=== PATIENT | male | born 1970 | race Caucasian/White ===

== ENCOUNTER 2017-03-22 19:08 | Emergency (ER) | payer BC ==
[~2017-03-22] VITALS: Ht 180.3 cm; Wt 147.4 kg
--- OUTSIDE RECORDS SUMMARY | ~2017-03-22 | XMS | Clinical Summary ---
Demographics + + + | Address | [address] | | | [place] [address] | + + + | Home Phone | | + + + | Preferred Language | Unknown | + + + | Marital Status | | + + + | Mosque Affiliation | Unknown | + + + | Race | White | + + + | Ethnic Group | Not or | + + + Author + + + | Author | [facility] | + + + | Organization | [facility] | + + + | Address | Unknown | + + + | Phone | Unavailable | + + + Support +------+ + + + +-------+ | Name | Relationship | Address | Phone | +------+ + + + +-------+ ECON | [address] | | [place] | [address] | +------+ + + + +-------+ Care Team Providers + +------+ + | Care Communications Technician Name | Role | Phone | + +------+ + PP | Unavailable | + +------+ + Source Comments JUAN is fully live on both [facility] Amb[facility] and [facility] InPatient.[facility] Allergies Not on File Current Medications Not [...]
--- OUTSIDE RECORDS SUMMARY | ~2017-03-22 | XMS | Clinical Summary ---
Demographics + + + | Address | [address] | | | [place] [address] | + + + | Home Phone | | + + + | Preferred Language | Unknown | + + + | Marital Status | | + + + | Mandaen Affiliation | Unknown | + + + [address] | | [place] | [address] | +------+ + + + +-------+ Care Team Providers + +------+ + | Care Outbound Supervisor Name | Role | Phone | + +------+ + PP | Unavailable | + +------+ + Source Comments JUAN is fully live on both [facility] Ambulatory and [facility] InPatient.[facility] Allergies Not on File Current Medications [...]
[2017-03-22] MEDS ORDERED: NORVASC10 MG PO (19:19)
== END 2017-03-22 22:58 | disposition home or self-care (01) ==
LOC: ED 19:08
DX: K52.9 Noninfective gastroenteritis and colitis, unspecified (principal); I10 Essential (primary) hypertension; Z79.899 Other long term (current) drug therapy
CPT/HCPCS: 80053; 81001; 83690; 85025; 96361; 96374; 96375; 99284; J2270; J2405; J2550; J7030

== ENCOUNTER 2017-09-30 19:24 | Inpatient (IN) | payer BC ==
[~2017-09-30] VITALS: Ht 180.3 cm; Wt 134.3 kg
--- OUTSIDE RECORDS SUMMARY | ~2017-09-30 | XMS | Clinical Summary ---
Demographics + + + | Address | [address] | | | [place] [address] | + + + | Home Phone | | + + + | Preferred Language | Unknown | + + + | Marital Status | | + + + | Christianity Affiliation | Unknown | + + + | Race | White | + + + | Ethnic Group | Not or | + + + Author + + + | Author | [facility] | + + + | Organization | [facility] | + + + | Address | Unknown | + + + | Phone | Unavailable | + + + Support + + + + + | Name | Relationship | Address | Phone | + + + + + | THANH CAMPBELL | ECON | [address] | | | | | [place] | | | | | [address] | | + + + + + Care Team Providers + +------+ + | Care Learning Engineer Name | Role | Phone | + +------+ + PP | Unavailable | + +------+ + Source Comments JUAN is fully live on both [facility] Ambulatory and [facility] InPatient.[facility] Allergies Not on File Current Medications Not on file Active Problems Not on file Social History + +-------+ +--------+------+ | Tobacco Use | Types | Packs/Day | Years | Date | | | | | Used | | + +-------+ +--------+------+ | Never Assessed | | | | | + +-------+ +--------+------+ + + + | Sex Assigned at | Date Recorded | | | | + + + | Not on file | | + + + Plan of Treatment Not on file Results Not on filefrom Last 3 Months"
--- OUTSIDE RECORDS SUMMARY | ~2017-09-30 | XMS | Clinical Summary ---
Demographics + + + | Address | [address] | | | [place] [address] | + + + | Home Phone | | + + + | Preferred Language | Unknown | + + + | Marital Status | | + + + | Taoist Affiliation | Unknown | + + + | Race | Unknown | + + + | Ethnic Group | Unknown | + + + Author + + + | Author | [facility] | + + + | Organization | [facility] | + + + | Address | Unknown | + + + | Phone | Unavailable | + + + Support + + + + + | Name | Relationship | Address | Phone | + + + + + | Africa Arvizu | ECON | [address] | | | | | [place] | | | | | [address] | | + + + + + Care Team Providers + +------+ + | Care Facility Operations Manager Name | Role | Phone | + +------+ + | Medicine, [place] | PP | Unavailable | | Family | | | + +------+ + Allergies Not on File Current Medications Not [...]
--- OUTSIDE RECORDS SUMMARY | ~2017-09-30 | XMS | Clinical Summary ---
Demographics + + + | Address | [address] | | | [place] [address] | + + + | Home Phone | | + + + | Preferred Language | Unknown | + + + | Marital Status | | + + + | Presybeterian Affiliation | Unknown | + + + | Race | Unknown | + + + | Ethnic Group | Unknown | + + + Author + + + | Author | [facility] | + + + | Organization | [facility] | + + + | Address | Unknown | + + + | Phone | Unavailable | + + + Support + + + + + | Name | Relationship | Address | Phone | + + + + + | Africa Arvizu | ECON | [address] | | | | | [place] | | | | | [address] | | + + + + + Care Team Providers + +------+ + | Care Older Adult Social Work Specialist Name | Role | Phone | + +------+ + | Medicine, [place] | PP | Unavailable | | Family [...]
--- OUTSIDE RECORDS SUMMARY | ~2017-09-30 | XMS | Clinical Summary ---
Demographics + + + | Address | [address] | | | [place] [address] | + + + | Home Phone | | + + + | Preferred Language | Unknown | + + + | Marital Status | | + + + | Advent Affiliation | Unknown | + + + [...] [place] | | | | | [address] | | + + + + + Care Team Providers + +------+ + | Care Umbrella Cutter Name | Role | Phone | + +------+ + PP | Unavailable | + +------+ + Source Comments JUAN is fully live on both [facility] Ambulatory and [facility] InPatient.[facility] Allergies Not on File Current Medications Not [...]
--- OUTSIDE RECORDS SUMMARY | ~2017-09-30 | XMS | Clinical Summary ---
Demographics + + + | Address | [address] | | | [place] [address] | + + + | Home Phone | | + + + | Preferred Language | Unknown | + + + | Marital Status | | + + + | Episcopalian Affiliation | Unknown | + + + [...] [place] | | | | | [address] | | + + + + + Care Team Providers + +------+ + | Care Slot Machine Department Floorperson Name | Role | Phone | + +------+ + PP | Unavailable | + +------+ + Source Comments JUAN is fully live on both [facility] Amb[facility] and [facility] InPatient.[facility] Allergies Not on File Current Medications [...]
--- OUTSIDE RECORDS SUMMARY | ~2017-09-30 | XMS | Clinical Summary ---
Demographics + + + | Address | [address] | | | [place] [address] | + + + | Home Phone | | + + + | Preferred Language | Unknown | + + + | Marital Status | | + + + | Sabianism Affiliation | Unknown | + + + | Race | Unknown | + + + | Ethnic Group | Unknown | + + + Author + + + | Author | [facility] | + + + | Organization | [facility] | + + + | Address | Unknown | + + + | Phone | Unavailable | + + + Support + + + + + | Name | Relationship | Address | Phone | + + + + + | Africa Arvizu | ECON | [address] | | | | | [place] | | | | | [address] | | + + + + + Care Team Providers + +------+ + | Care Milk Drier Name | Role | Phone | + +------+ + | Medicine, [place] | PP | Unavailable | | Family [...]
[~2017-09-30 19:24] MED LIST: NORVASC10 MG PO
[2017-09-30] MEDS ORDERED: METFORMIN HCL500 M1 PO (19:40)
[2017-09-30] MEDS ORDERED: CIPRO500 MG PO (19:42)
[2017-09-30] MEDS ORDERED: FLAGYL500 MG PO (19:43)
--- NOTE | 2017-10-01 00:06 | NUR ---
PT COMPLAINED OF NAUSEA, MED WITH PRN ZOFRAN. IN ROOM. CALL LIGHT WITHIN REACH, IV INFUSING PER ORDER.
--- NOTE | 2017-10-01 00:40 | NUR ---
MADE AN ICE PACK GIVIEN TO PATIENT.
--- NOTE | 2017-10-01 00:57 | NUR ---
PATIENT GIVEN BY CLINICAL TRIALS SYSTEMS ADMINISTRATOR FOR COMPLAINTS OF NAUSEA. PATIENT ASSESED. PATIENTS 0000 MEDICATIONS GIVEN PER ORDER. PATIENT RATES PAIN AT A 2/10. PATIENT DENIES THE NEED FOR PAIN MEDICATION AT THIS TIME. PATIENT PROVIDED WITH ICE PACK PER REQUEST FOR PAIN IN HIS LLQ. NO FURTHER NEEDS NOTED. CALL LIGHT IN REACH. ASLEEP ON THE COUCH.
--- NOTE | 2017-10-01 02:18 | NUR ---
PATIENTS VITALS TAKEN AND RECORDED WITH FILLER ROOM ATTENDANT. NO NEEDS NOTED. CALL LIGHT IN REACH.
--- NOTE | 2017-10-01 03:59 | NUR ---
PATIENT IS RESTING IN BED WITH EYES CLOSED, RR 18. CALL LIGHT IN REACH.
--- NOTE | 2017-10-01 05:37 | NUR ---
PATIENTS VITALS TAKEN AND RECORDED. PATIENTS 0500 ABX STARTED PER ORDER. PATIENT DENIES ANY PAIN OR NAUSEA AT THIS TIME. PATIENT DENIES ANY NEEDS AT THIS TIME. CALLL LIGHT IN REACH.
--- NOTE | 2017-10-01 05:51 | NUR ---
PATIENT RESTED WELL SINCE ARRIVAL TO THE FLOOR. PATIENT IS ON A CLEAR LIQUID DIET. 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 PATIENT RECEIVED PRN NAUSEA MEDICATION X1. PATIENT COMPLAINED OF PAIN BUT DENIED THE NEED FOR PAIN MEDICATION. PATIENT HAS IV FLUIDS INFUSING. PATIENT IS AAOX3. URINE OUTPUT IS QS.
--- NOTE | 2017-10-01 09:52 | NUR ---
PATIENT IN BED, AT BEDSIDE. PATIENT REFUSED ALL ADLS. FRESH WATER GIVEN. CALL LIGHT IN REACH. NO FURTHER NEEDS AT THIS TIME.
--- NOTE | 2017-10-01 12:09 | NUR ---
PT RESTING IN BED WITH HIS AND FRIEND VISITING. HE HAS DEALT WITH THIS BEFORE, HE DID SAY THAT HE FEELS MUCH BETTER. EXTENDED A BLESSISNG-WILL RETURN TO FOLLOW UP
--- NOTE | 2017-10-01 12:33 | NUR ---
PATIENT ALERT LYING IN BED. AWAKE. DISCOMFORT IN ABDOMEN COMES AND GOES. 07/27 AT PEAK OF "[employer]ARE [employer]". COMFORTABLE AT THIS TIME. CLEAR LIQUID TRAY ON BEDSIDE TABLE. ACTIVE BOWEL TONES. DR ARANA HAS YET TO SEE PATIENT. IVF INFUSING. NO COMPLAINTS AT THIS TIME. AWAITING PLAN/ORDERS FROM [facility].
--- NOTE | 2017-10-01 13:26 | NUR ---
Medications reconciled using pharmacy records and patient interview. Patient has recurring flare-ups of diverticulitis, hence he has active RXs for ciprofloxacin & metronidazole.
--- NOTE | 2017-10-01 14:45 | NUR ---
PATIENT IN BED. PATIENT TALKING TO FRIENDS AND FAMILY ON PHONE. CALL LIGHT IN REACH. NO FURTHER NEEDS AT THIS TIME.
--- NOTE | 2017-10-01 16:28 | NUR ---
PT UP TO BATHROOM INDEPENDENTLY. SALINE LOCKED TO AMBULATE. IVF CHANGED TO LR AND INFUSING AT 125ML/HR. CEFEPIME INFUSING CONCURRENTLY. SCDs PLACED AT END OF BED. NURSE JUDGEMENT: DID NOT APPLY TO PATIENT HE IS UP IN ROOM OFTEN. FALL HAZARD. EDUCATED PATIENT THEY WILL HAVE TO BE APPLIED AT BEDTIME. ICE OFFERED FOR ABDOMEN. REFUSED FOR NOW.
--- NOTE | 2017-10-01 18:23 | NUR ---
PATIENT IN BED WATCHING TV. FRESHWATER GIVEN. CALL LIGHT IN REACH. NO FURTHER NEEDS AT THIS TIME.
--- NOTE | 2017-10-01 18:49 | NUR ---
PATIENT HAD ON AND OFF ABDOMINAL PAIN TODAY. NO PRN MEDS GIVEN. SBA/IND IN ROOM. VOIDING WELL. LR @ 125. CEFEPIME AND FLAGYL. SCDs AT NIGHT. HE GETS UP FREQUENTLY THROUGHOUT DAY. ICE TO ABDOMEN PRN. BOWEL REST AND ABX FOR TREATMENT. ACCU CHECKS ACHS.
--- NOTE | 2017-10-01 19:05 | NUR ---
RECEIVED REPORT FROM AR CHILDRESS RN. PATIENT IS RESTING IN BED WATCHING TV. PATIENT DENIES ANY PAIN OR NAUSEA. NO NEEDS NOTED CALL LIGHT IN REACH.
--- NOTE | 2017-10-01 20:20 | NUR ---
VITALS AND I AND O'S DONE AND CHARTED. BLOOD SUGAR DONE WELL. INFORMED HIS RN DARREN. BEDSIDE TABLE AND CALL LIGHT WITHIN REACH.
--- NOTE | 2017-10-01 20:35 | NUR ---
PATIENT ASSESMENT COMPLETED. PATIENTS EVENING MEDICATIONS GIVEN PER ORDER. PATIENT DENIES ANY PAIN OR NAUSEA. PATIENT GIVEN TOWELS AND SOAP TO TAKE A SHOWER. PATIENT DENIES ANY FURTHER NEEDS CALL LIGHT IN REACH.
--- NOTE | 2017-10-01 21:20 | NUR ---
PATIENT IS NOW OUT OF THE SHOWER RESTING IN BED. PATIENT DENIES ANY PAIN OR NAUSEA. PATIENTS IX ABXIS INFUSING. PATIENT DENIES ANY NEEDS. BROTHE MADE PER REQUEST. CALL LIGHT IN REACH. AT THE BEDSIDE.
--- NOTE | 2017-10-01 23:13 | NUR ---
PATIENT RATES PAIN AT A 4/10 IN HIS LLQ. PATIENT GIVNE TYLENOL PER REQUEST. PATIENT DRANK ALL OF HIS BROTH. PATIENT DENIES ANY NAUSEA. NO FURTHER NEEDS NOTED. CALL LIGHT IN REACH. IN THE ROOM.
--- NOTE | 2017-10-02 01:04 | NUR ---
PATIENT IS RESTING IN BED WITH EYES CLOSED. BREATHING IS EVEN AND UNLBAORED, RR17 CALL LIGHT IN REACH.
--- NOTE | 2017-10-02 02:21 | NUR ---
PATIENT IS RESTING IN BED. 0200 MEDICATIONS GIVEN PER ORDER. PATIENT DENIES ANY PAIN OR NAUSEA. NO FURTHER NEEDS NOTED. CALL LIGHT IN REACH.
--- NOTE | 2017-10-02 04:24 | NUR ---
PATIENT IS RESTING IN BED WITH EYES CLSOED, RR 17. CALL LIGHT IN REACH. ASLEEP ON THE COUCH. CALL LIGHT IN REACH.
--- NOTE | 2017-10-02 05:18 | NUR ---
PATIENT RESTED WELL THOUGHOUT THE SHIFT. PATIENT IS ON A CLEAR LIQUID DIET. PATIENT REPORTS NAUSEA THAT COMES AND GOES, DENID NEED FOR NAUSEA MEDICATION. PATIENT IS INDEPENDNET IN THE ROOM. PATIENT HAS SCDS IN PLACE. PATIENT RECEIVED PRN TYLENOL FOR PAIN IN HIS LLQ. URINE OUPUT IS QS. IV INFUSING. AAOX3.
--- NOTE | 2017-10-02 05:31 | NUR ---
PATIENTS VITALS TAKEN AND RECORDED. PATIENT DENIES ANY PAIN OR NASUEA AT THIS TIME. NO NEEDS NOTED. CALL LIGHT IN REACH.
--- NOTE | 2017-10-02 07:10 | NUR ---
BEDSIDE REPORT RECEIVED FROM RN LIAISON RN. PATIENT RESTING IN BED. RESPIRATIONS ARE EVEN AND UNLABORED. CALL LIGHT WITHIN REACH OF PATIENT. PATIENT DENIES FURTHER NEEDS OR REQUESTS AT THIS TIME.
--- NOTE | 2017-10-02 07:54 | CONS ---
[facility] [address], [place] [address] Signed DATE OF CONSULTATION: 10/01/2017 CHIEF COMPLAINT: Left lower quadrant abdominal pain. 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 He had been as high as 330 pounds, but he has lost 60 pounds in the last seven months or so and said he is overall feeling better and consequently he has decreased his metformin dosing. However, seven years ago he had his first episode of diverticular disease and he said he had a eventually got better. The only questioned him carefully he told me he actually never took any antibiotics. He has had one or two other episodes where he will get some pain. He quit eating for 2-3 days and it settles down. He ended up getting a colonoscopy a number years ago here at [facility] and was told he had diverticular disease. On this occasion, he said the pain was more intense and it has never been and he finally decided to come to the emergency room for evaluation. In the emergency room, he has localized peritonitis in the left lower quadrant with unremarkable vital signs. His white count is up at 13.[address] scan confirmed the pericolonic inflammation in his distal descending colon in the left lower quadrant. Consequently, I was asked to admit him as a general surgeon on-call. He has been given IV fluids, pain control, and antibiotics. He said overall he is feeling better, but he has noticed a marked improvement in the left lower quadrant. He said he feels like he is ready to pass some gas, but he is yet to pass any gas. PAST MEDICAL HISTORY: Hypertension, diverticulosis around 2010, obesity, and type 2 diabetes. PAST SURGICAL HISTORY: Colonoscopy around 2010. SOCIAL HISTORY: He does not smoke or drink. He is to his , Peri at [phone] and [phone]. They prefer the [facility]. 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 Dr. Ninoska Bower is his primary care provider. FAMILY HISTORY: Dad ended up with his aortic valve replaced related to some smoking. Apparently, there was a lot of coronary artery disease on his dad's side of family. His mom is generally healthy, but there is a lot of diabetes on her side of the family. Apparently, there is no family history of colon cancer or polyps. REVIEW OF SYSTEMS: Electronically Signed By: LATRELL ARANA MD 10/02/17 0754 PATIENT NAME: NAOMI CAMPBELL CONSULTATION DATE OF : 68 REPORT #: [id number] PHYSICIAN: LATRELL ARANA MD PCP: NINOSKA BOWER MD REPORT IS CONFIDENTIAL AND NOT TO BE RELEASED WITHOUT AUTHORIZATION [address] [address] Signed He had 10 systems reviewed and he said he has done pretty well. There was nothing new to add. There has been no other surgeries or metal in his body. ALLERGIES: None. MEDICATIONS: Amlodipine 10 mg p.o. daily, metformin 500 mg p.o. b.i.d. and he does have some Cipro and Flagyl at home, but he has never used it. PHYSICAL EXAMINATION: VITAL SIGNS: His blood pressure is 122/74, heart rate 72, respiratory rate 14, temperature is 97.7, and he is 96% on room air. He is 5 feet 11 inches at 134 kg exam Naomi is a 46-year-old gentleman, lying supine in his hospital bed. His is at the bedside. He does not appear systemically ill or toxic. They are both very good historians. LUNGS: Clear to auscultation. HEART: Regular rate and rhythm. ABDOMEN: Obese, but he is tender in the left lower quadrant to palpation with localized peritonitis. LABORATORY DATA: His white blood count 13.9, neutrophils 69, hemoglobin 15. His BUN is 14, creatinine 0.9, glucose 105. His urinalysis is negative. Liver function tests negative. Albumin is 4.7. RADIOGRAPHIC STUDIES: The CT scan and pelvis is reviewed both the report and the images and one can easily see the pericolonic inflammation in the distal descending colon. ASSESSMENT AND PLAN: Naomi is a 46-year-old obese diabetic gentleman who is here with a recurrent episode of sigmoid diverticulitis. We are going to keep him on his IV cefepime and Flagyl along with a liquid diet. We will give him some time to improve and we will repeat his labs. He told me he is not particularly interested in surgery if he can avoid that. He is pretty knowledgeable diverticular disease as he has been online reading. I think he and his had good understanding. We will stick with the current plan. We will reassess tomorrow. They have expressed understanding and agreed above plan. Latrell Arana MD Electronically Signed By: LATRELL ARANA MD 10/02/17 0754 PATIENT NAME: NAOMI CAMPBELL CONSULTATION DATE OF : 68 REPORT #: [id number] PHYSICIAN: LATRELL ARANA MD PCP: NINOSKA BOWER MD REPORT IS CONFIDENTIAL AND NOT TO BE RELEASED WITHOUT AUTHORIZATION [facility] [address] [place], [place] [address] Signed ALB/MODL /[id number] cc: MD Latrell Gasca MD Copies: NINOSKA BOWER MD, ANDREW L MD ~ Electronically Signed By: LATRELL ARANA MD 10/02/17 0754 PATIENT NAME: NAOMI CAMPBELL CONSULTATION DATE OF : 68 REPORT #: [id number] PHYSICIAN: LATRELL ARANA MD PCP: NINOSKA BOWER MD REPORT IS CONFIDENTIAL AND NOT TO BE RELEASED WITHOUT AUTHORIZATION
--- NOTE | 2017-10-02 08:20 | NUR ---
MORNING ASSESSMENT COMPLETE AT THIS TIME. PATIENT AMBULATES INDEPENDENTLY AND UTILIZES CALL LIGHT APPROPERIATELY. IV FLAGYL INFUSING AT THIS TIME VIA PIGGYBACK. LACTATED RINGERS INFUSING AT 125 ML/HOUR. BLOOD GLUCOSE WNL AT 104. SLIDING SCALE NOT INDICATED. PATIENT AMBULATING INDEPENDENTLY IN ROOM FREQUETLY. SCD'S NOT NEEDED AT THIS TIME. PATIENT DENIES ADDITIONAL NEEDS OR REQUESTS AT THIS TIME. DISCUSSED PLAN OF CARE WITH PATIENT AND AT BEDSIDE.
--- NOTE | 2017-10-02 08:29 | NUR ---
CHACORTA SET UP BED WITH CLEAN LINENS AND TOWELS FOR SHOWER.
--- NOTE | 2017-10-02 09:39 | NUR ---
IV CEFEPIME CURRENTLY INFUSING AT 12.5 ML/HR. IV ANTIBIOTIC RUNNING CONCURRENTLY WITH LACTATED RINGERS. PERIPHERAL IV SITE PATENT AND PATIENT HAS NO REQUESTS OR COMPLAINTS AT THIS TIME. CALL LIGHT WITHIN REACH.
--- NOTE | 2017-10-02 11:42 | NUR ---
PATIENT SITTING UP IN BED WATCHING TV. VISITING. SAYS HE WAS DIAGNOSED WITH TYPE 2 DM IN MARCH. HE STARTED EATING SMALLER PORTIONS, MORE VEGGIES, PROTEINS AND FATS AND LIMITING CARBS. HE IS NOT REALLY DOING STRICT DIET, BUT HE SAYS HE IS DOING NO SUGAR AND A LOT LESS CARBS THAN HE USED TO. HE HAS GOOD CONTROL OVER HIS BLOOD SUGARS NOW. ASKING ABOUT WEBSITES TO FIND LOWER CARB NO SUGAR RECIPES. GAVE HER SOME SUGGESTIONS. HE WILL BE ADVANCED TO SOLID FOOD TODAY. EXPLAINED THE CARBS ON THE MENU. ALSO EXPLAINED THAT WE PROVIDE ONE-ON-ONE OUTPATIENT APPOINTMENTS IF HE FEELS HE NEEDS SOME HELP ADDING THINGS BACK IN TO HIS DIET AFTER HE REACHES HIS WEIGHT LOSS GOAL. NO NUTRITION INTERVENTION NEEDED AT THIS TIME. WILL REMAIN AVAILABLE IF NEEDED.
--- NOTE | 2017-10-02 12:00 | NUR ---
CALLED PHARMACY TO CONFIRM IV COMPATABILITY WITH FLAGYL AND LACTATED RINGERS. ALSO CALLED TO CONFIRM IV COMPATABILITY WITH MAXIPIME AND LACTATED RINGERS. PHARMACY CONFIRMED IV COMPATABILITY FOR BOTH INSTANCES.
--- NOTE | 2017-10-02 12:05 | NUR ---
BLOOD GLUCOSE OBTAINED WITH A RESULT OF 81. INSULIN SLIDING SCALE NOT INDICATED DUE TO BLOOD GLUCOSE REMAINING WITHIN NORMAL RANGE.
--- NOTE | 2017-10-02 14:15 | NUR ---
PATIENT VERBALIZED MINIMAL NAUSEA AFTER INITIALLY EATING FULL LIQUID TRAY, BUT STATED THAT NAUSEA QUICKLY RESIDED ON ITS OWN. PATEINT IN ROOM VISITING FAMILY. PATIENT DOES NOT HAVE ANY FURTHER REQUESTS AT THIS TIME. CALL LIGHT WITHIN REACH.
--- NOTE | 2017-10-02 14:53 | NUR ---
IV CEFEPIME CURRENTLY INFUSING AT 12.5 ML/HR RUNNING CONCURRENTLY WITH LACTATED RINGERS. PERIPHERAL SITE IS PATENT AND PATIENT DOES NOT HAVE ADDITIONAL NEEDS OR REQUESTS AT THIS TIME. CALL LIGHT WITHIN REACH.
--- NOTE | 2017-10-02 16:13 | NUR ---
PATIENT RATES PAIN 4/10 AFTER COMPLETING A BOWEL MOVEMENT. PATIENT DESCRIBES THE PAIN "ACHY BUT IT'S TOLERABLE". PATIENT DENIES NEED FOR PAIN CONTROL AT THIS TIME AND WISHES TO WAIT TO SEE IF PAIN WILL SUBSIDE ON ITS OWN. PATIENT INSTRUCTED BY NURSE TO USE CALL LIGHT IF PAIN WORSENS.
--- NOTE | 2017-10-02 18:01 | NUR ---
BLOOD GLUCOSE CHECK RESULT OF 70. PATIENT DENIES SYMPTOMS OF HYPOGLYCEMIA AND STATES HE FEELS "FINE". PATIENT EDUCATED ON SYMPTOMS OF HYPOGLYCEMIA AND TO CALL NURSE IF SYMPTOMS APPEAR. PATIENT CURRENTLY ORDERING DINNER FROM A FULL LIQUID DIET AND DENIES REQUESTS AT THIS TIME. CALL LIGHT WITHIN REACH.
--- NOTE | 2017-10-02 18:09 | NUR ---
PATIENT IS ALERT AND ORIENTED X3 AND AMBULATES INDEPENDENTLY IN ROOM.PATIENT'S LUNGS CLEAR BILATERALLY. NORMAL SINUS RHYTHM. BOWEL TONES ACTIVE. PATIENT CURRENTLY ON A FULL LIQUID DIET. PATIENT VERBALIZED NAUSEA AND INCREASED LEFT LOWER QUADRANT PAIN FOLLOWING BOWEL MOVEMENT AND HAS REQUESTED PO TYLENOL AT 1815. PATIENT'S BLOOD GLUCOSE HAS REMAINED WITHIN NORMAL LIMITS. LAST BLOOD GLUCOSE OCCURRED AT 1800 WITH RESULTS OF 70. PATIENT DENIES SYMPTOMS OF HYPOGLYCEMIA.
--- NOTE | 2017-10-02 18:26 | NUR ---
PATIENT VERBALIZED CONTINUOUS PAIN OF 4/10 AND REQUESTED TYLENOL. PATIENT RECIEVED PRN 650 MG TYLENOL. PATIENT IS NOW EATING DINNER AND VISITNG WITH . CALL LIGHT IS WITHIN REACH.
--- NOTE | 2017-10-02 19:15 | NUR ---
REPORT RECEIVED FROM CÉSAR BLACKWELL. PT RESTING IN BED CALL LIGHT IN REACH NAD PT DENIES NEEDS AT THIS TIME.
--- NOTE | 2017-10-02 21:29 | NUR ---
VITALS AND I&OS DONE AND CHARTED. BEDSIDE TABLE AND CALL LIGHT WITHIN REACH. PT NEEDS NOTHING AT THIS TIME.
--- NOTE | 2017-10-02 21:35 | NUR ---
CHARGE NURSE ROUNDING NOTE:, SITTING EDGE OF BED PLAYING CARD GAMES WITH . NO C/O PAIN, NO REQUESTS. IVF INFUSING W/O PROBLEMS
--- NOTE | 2017-10-02 23:43 | NUR ---
PT REPORTS HAVING LOOSE BM WITH SOME LOWER ABD PAIN WITH BM. PT REQUESTED AND RECEIVED TYLENOL 650MG PO AT THIS TIME. CALL LIGHT IN REACH AND PT DENIES FURTHER NEEDS OR CONCERNS AT THIS TIME.
--- NOTE | 2017-10-03 01:45 | NUR ---
PT RESTING IN BED, EYES CLOSED AND RR EVEN AND UNLABORED AT 16. CALL LIGHT IN REACH AND FAMILY AT BEDSIDE.
--- NOTE | 2017-10-03 03:26 | NUR ---
pt resting in bed, states pain is tolerable and appears to be in no distress. Call light in reach and iv antibiotic is infusing. family at bedside. call light and h20 in reach. no needs voiced.
--- NOTE | 2017-10-03 05:22 | NUR ---
PT RESTING SUPINE IN BED, RR16, PT APPEARS TO BE SLEEPING COMFORTABLY ON LEFT LATERAL SIDE. CALL LIGHT AND H20 IN [place] FAMILY REMAINS AT BEDSIDE.
--- NOTE | 2017-10-03 05:58 | NUR ---
PT HAS HAD GOOD NIGHT. PAIN HAS BEEN WELL CONTROLLED WITH PO TYLENOL. PT HAD MEDIUM SIZED SOFT BROWN BM THIS SHIFT ANDB DID REPORT ADRIAN LOWER ABD PAIN THAT WORSENED WITH BM BUT WAS RELEIVED WITH PO TYLENOL. IV MAINTENANCE FLUIDS CONTINUE TO INFUSE AT 75ML/HR AND PT RECEIVING IV ANTIBIOTICS. PT AMBULATES INDEPENDANTLY AND VOIDS QS CLEAR YELLOW URINE. PT DOES HAVE ACCUCHECKS SCHEDULED AC &HS AND PTS HS BS WAS 128.
--- NOTE | 2017-10-03 06:05 | NUR ---
PT RESTING ON LEFT LATERAL SIDE IN BED, RR16, PT APPEARS TO BE SLEEPING COMFORTABLY. CALL LIGHT AND H20 IN REACH AND FAMILY AT BEDSIDE.
--- NOTE | 2017-10-03 06:10 | NUR ---
VITALS AND I&OS DONE AND CHARTED. EMPTIED GARBAGES, FRESH ICE WATER GIVEN AND BEDSIDE TABLE - CALL LIGHT IN REACH.
--- NOTE | 2017-10-03 07:10 | NUR ---
SHIFT REPORT RECEIVED FROM COLLAR FOLDER OPERATOR RN AT PATIENT'S BEDSIDE. PATIENT RESTING IN BED VISTING WITH . PATIENT HAS NO REQUESTS OR COMPLAINTS AT THIS TIME. CALL LIGHT WITHIN REACH.
--- NOTE | 2017-10-03 07:42 | DS ---
[facility] [address] [place], [place] [address] Signed ADMISSION DATE: 09/30/2017 DISCHARGE DATE: 10/03/2017 FINAL DIAGNOSES: 1. Sigmoid diverticulosis. 2. Anemia. PROCEDURES: CT scan of abdomen and pelvis. HISTORY OF PRESENT ILLNESS: Naomi is a 46-year-old gentleman, who has had trouble with left lower quadrant abdominal pain with some nausea and diarrhea. He was diagnosed with his diabetes about 7 months ago, and he got his weight down about 60 pounds. He thinks his 1st diverticulitis episode came about 7 years ago. There may have been a microperforation that he was able to get through conservatively. He actually has a 15-day supply of Cipro and Flagyl at home from his primary care provider. However, he chose not to take it. Normally, he can just stop his eating for a day or two and it improves. However, at this time it continued to worsen, so he came to emergency room for evaluation. HOSPITAL COURSE: Naomi was seen in the emergency room with respect to the above. His white count was up at 13.9. He had localized peritonitis in the left lower quadrant and a CT scan showing moderately significant pericolonic inflammation of the distal descending colon. I was asked to admit him as a general surgeon on-call. HOSPITAL COURSE: Naomi was admitted as above and placed on cefepime and Flagyl IV. By the following morning, his white count was already down to 6.2, and his peritonitis had resolved, but he was asphalt heater tender in the left lower quadrant. He started to have some gas and a little bit liquid stool, so we decreased his IV fluids and increase in the full liquids, and by the next day his white count remained normal at 6.4. His hemoglobin had dropped to 12.9, and his pain was almost gone completely. He only had minimal pain to deep palpation in the left lower quadrant. He said after a bowel movement, he feels a little pain, but he said Tylenol was more than sufficient, he declined narcotics. In addition, his had the Cipro and Flagyl in her purse, so we looked at that. It is a 15-day supply. Due to his progress, we are going to be discharging him to home. DISCHARGE PLANS AND MEDICATIONS: Naomi will be discharged to home with no prescription for narcotics. He said Tylenol and ibuprofen will be fine. He has Cipro 500 mg p.o. b.i.d. for 15 days as well as Flagyl Electronically Signed By: LARTELL ARANA MD 10/03/17 0742 PATIENT NAME: NAOMI CAMPBELL DISCHARGE SUMMARY DATE OF : 68 REPORT #: [id number] PHYSICIAN: LATRELL ARANA MD PCP: NINOSKA BOWER MD REPORT IS CONFIDENTIAL AND NOT TO BE RELEASED WITHOUT AUTHORIZATION [address] [address] Signed 500 mg p.o. t.i.d. for [address] Bower. I have explained to Naomi he should follow a low residue diet for about 6-8 weeks. He is welcome to return to work and perform activities of daily living today or tomorrow. I will be seeing him back in my office in about 7 to 14 days to monitor his progress. Also will be doing a colonoscopy here in about 6-8 weeks or so. He and his have expressed understanding and agreed with the above plan. Latrell Arana MD ALB/MODL /[id number] cc: MD Latrell Gacsa MD Copies: NINOSKA BOWER MD, ANDREW L MD ~ Electronically Signed By: LATRELL ARANA MD 10/03/17 0742 PATIENT NAME: NAOMI CAMPBELL DISCHARGE SUMMARY DATE OF : 68 REPORT #: [id number] PHYSICIAN: LATRELL ARANA MD PCP: NINOSKA BOWER MD REPORT IS CONFIDENTIAL AND NOT TO BE RELEASED WITHOUT AUTHORIZATION
--- NOTE | 2017-10-03 07:57 | NUR ---
MORNING ASSESSMENT COMPLETE AT THIS TIME. PATIENT IS ALERT AND ORIENTED X3. PATIENT'S HEART RHYTHM REGULAR WITH BILATERAL CLEAR LUNG SOUNDS. BOWEL TONES ACTIVE IN ALL FOUR QUADRANTS. PATIENT TOLERATING FULL LIQUID DIET WELL. PERIPHERAL IV SITE INTACT AND CURRENTLY INFUSING LACTATED RINGERS AT 75 ML/HR WITH IV FLAGYL INFUSING VIA PIGGYBACK. PATIENT RESTING IN BED VISITING WITH . PATIENT HAS NO FURTHER COMPLAINTS OR REQUESTS AT THIS TIME. CALL LIGHT WITHIN REACH.
--- NOTE | 2017-10-03 08:10 | NUR ---
DID PATIENT'S BLOOD SUGAR CHECK.
--- NOTE | 2017-10-03 08:55 | NUR ---
WRITTEN DISCHARGE INSTRUCTIONS DISCUSSED WITH PATIENT AND PATIENT'S . DISCHARGE PACKET GIVEN TO PATIENT. BOTH PATIENT AND PATIENT'S VERBALIZED UNDERSTANDING AND ALL QUESTIONS WERE ANSWERED APPROPERIATELY. PERIPHERAL IV SITE REMOVED AND DISCHARGE VITAL SIGNS OBTAINED. PATIENT AMBULATED INDEPENDENTLY TO FRONT ENTRANCE OF HOSPITAL, TO DRIVE PATIENT HOME.
== END 2017-10-03 08:55 | disposition home or self-care (01) | DRG 392 ==
LOC: ED 19:24 → MS 22:37
PROVIDERS: ADMIT Colon & Rectal Surgery
DX: K57.30 Diverticulosis of large intestine without perforation or abscess without bleeding (principal); D64.9 Anemia, unspecified; I10 Essential (primary) hypertension
CPT/HCPCS: 36415; 74177; 80048; 80053; 81001; 83690; 83735; 84100; 85025; 96361; 96374; 96375; 96376; 99285; G0378; J0692; J1170; J1644; J2405; J7030; J7120; Q9967